=== PATIENT | male | born 1995 | race Caucasian/White ===

== ENCOUNTER → 2024-12-11 08:51 | Outpatient (CLI) | payer OTHER, SELFPAY ==
--- NOTE | 2024-12-11 08:53 | DI.MRI.S_ITS ---
PROCEDURE: MR LUMBAR SPINE WO CON INDICATIONS: herniation TECHNIQUE: Noncontrast sagittal T1 spin echo and T2 fast echo, sagittal STIR, and T2 fast spin echo through the lumbar spine. In cases with scoliosis, additional coronal T2 fast spin echo may be performed. COMPARISON: None. FINDINGS: Image quality: Excellent. Alignment and Curvature: There is normal bony alignment. Bone Marrow: Marrow is of normal overall signal. No acute vertebral body compression fractures. Spinal Cord: Conus medullaris terminates at the L1 level. Visualized cord demonstrates normal signal and size. Paraspinous Soft Tissues: No paravertebral masses. T12-L1: Normal appearance. L1-L2: Normal appearance. L2-L3: Normal appearance. L3-L4: Normal appearance. L4-L5: Shallow disc bulge with endplate spurring results in mild bilateral foraminal stenosis. L5-S1: Left subarticular disc protrusion extends 7 mm beyond the vertebral endplate with slight effacement of the left S1 nerve root and encroachment of the left L5 nerve root. There is subsequent severe left foraminal stenosis. There is no central canal stenosis in the right exit foramen is patent. IMPRESSION: Degenerative disc disease of the lower lumbar spine with a focal subarticular disc protrusion on the left at L5-S1 which may contribute to a radiculopathy with encroachment of the left L5 nerve root. Dictated by: Irais Tolbert M.D. on 12/11/2024 at 14:40 Approved by: Irais Tolbert M.D. on 12/11/2024 at 14:42
== END ==
PROVIDERS: PCP Student in an Organized Health Care Education/Training Program; Referring Provider Student in an Organized Health Care Education/Training Program; Visit Provider Student in an Organized Health Care Education/Training Program
DX: M51.26 Other intervertebral disc displacement, lumbar region (principal); M51.27 Other intervertebral disc displacement, lumbosacral region; M51.369 Other intervertebral disc degeneration, lumbar region without mention of lumbar back pain or lower extremity pain
CPT/HCPCS: 72148